=== PATIENT | male | born 1995 | race American Indian/Alaskan Native ===

== ENCOUNTER 2017-05-20 17:59 | Emergency (ER) | payer OTHER ==
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
[2017-05-21 03:27] VITALS: BP 102/59
[2017-05-21] MEDS ORDERED: NORCO 10/325 PO ONE (03:41)
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
== END 2017-05-21 04:48 | disposition home or self-care (01) ==
LOC: ED 17:59
DX: S33.5XXA Sprain of ligaments of lumbar spine, initial encounter (principal); V89.2XXA Person injured in unspecified motor-vehicle accident, traffic, initial encounter; Y93.89 Activity, other specified; Y92.89 Other specified places as the place of occurrence of the external cause; Y99.8 Other external cause status
CPT/HCPCS: 70450; 72125; 72131; 99284